=== PATIENT | female | born 1965 | race Caucasian/White ===

== ENCOUNTER 2021-07-14 10:42 | Outpatient (CLI) | payer OTHER, SELFPAY ==
--- NOTE | ~2021-07-14 | XR_ITS ---
XR knee LT 3V DATE: 07/14/2021 11:08 INDICATION: Left knee pain. Stiffness after sitting. TECHNIQUE: 3 views COMPARISON: 06/29/2015 left knee FINDINGS: Diffuse osteopenia. Femoral lateral plate and multiple transverse screws are noted, providing internal fixation for prior comminuted intra-articular fracture of the distal femur. The fracture is healed. No recent fracture or dislocation, periosteal reaction or bone destruction. Normal alignment at the k nee joint. Femoral and popliteal artery calcifications. IMPRESSION: Status post ORIF comminuted distal femoral intra-articular fracture Osteopenia Reviewed, dictated and finalized at location B.
== END 2021-07-14 10:43 | disposition home or self-care (01) ==
LOC: ANHIMG 10:46
PROVIDERS: PCP Internal Medicine; Visit Provider Internal Medicine
DX: M85.862 Other specified disorders of bone density and structure, left lower leg (principal)
CPT/HCPCS: 73562

== ENCOUNTER 2021-07-25 13:12 | Outpatient (CLI) | payer OTHER, SELFPAY ==
--- NOTE | ~2021-07-25 | US_ITS ---
EXAMINATION: US carotid duplex BI DATE: 07/25/2021 14:06 INDICATION: Other specified symptoms/synovitis circulatory/respiratory system TECHNIQUE: Grayscale, color Doppler, and pulsed Doppler images of the cervical carotid arteries were obtained. The degree of vessel stenosis is placed in one of the following categories: normal, <50%, 5 0-69%, >=70% but less than near-occlusion, near-occlusion, or total occlusion. Note that percent sten osis relative to normal distal artery lumen diameter is indirectly measured from velocity measurement s as described by Jordan, et al. Radiology 2003; 229:340-346. COMPARISON: None. FINDINGS: RIGHT: The right common carotid artery (CCA) peak systolic velocity (PSV) is 103 cm/s. The right internal ca rotid artery (ICA) PSV is 130 cm/s. The right ICA end-diastolic velocity (EDV) is 38 cm/s. The right ICA/CCA PSV ratio is 1.3. Grayscale and color Doppler images yield an estimate of 50-69% diameter red uction from plaque in the ICA. The external carotid artery (ECA) PSV is 149 cm/s. There is antegrade flow in the right vertebral artery. LEFT: The left CCA PSV is 83 cm/s. The left ICA PSV is 172 cm/s. The left ICA EDV is 32 cm/s. The left ICA/ CCA PSV ratio is 2.1. Grayscale and color Doppler images yield an estimate of 50-69% diameter reducti on from plaque in the ICA. The ECA PSV is 170 cm/s. There is antegrade flow in the left vertebral art russ. IMPRESSION: 1. 50-69% stenosis in the right internal carotid artery. 2. 50-69% stenosis in the left internal carotid artery. Reviewed, dictated and finalized at location A.
== END 2021-07-25 13:13 | disposition home or self-care (01) ==
LOC: ANHIMG 13:16
PROVIDERS: PCP Internal Medicine; Visit Provider Internal Medicine
DX: R09.89 Other specified symptoms and signs involving the circulatory and respiratory systems (principal); I65.23 Occlusion and stenosis of bilateral carotid arteries
CPT/HCPCS: 93880

== ENCOUNTER 2021-09-26 14:34 | Outpatient (CLI) | payer OTHER, SELFPAY ==
--- NOTE | ~2021-09-26 | DEXA_ITS ---
Bone Density Report Name: LEORA GARZA Age: 56 Sex: Female Ethnicity: White Date of : 1965 Indication: osteopenia; parental hip fracture; prior fracture; Referring Provider: Tarah Jimenez Study: Bone densitometry was performed. Exam Date: September 26, 2021 Accession number: [id number] Bone Density: Region BMD T-score Z-score Classification AP Spine (L1-L4) 1.169 1.1 2.4 Normal Femoral Neck (Left) 0.455 -3.6 -2.4 Osteoporosis Total Hip (Left) 0.629 -2.6 -1.8 Osteoporosis Total Hip Bilateral Avg 0.699 -2.0 -1.2 Osteopenia Femoral Neck (Right) 0.644 -1.8 -0.7 Osteopenia Total Hip (Right) 0.767 -1.4 -0.6 Osteopenia World Health Organization criteria for BMD impression classify patients as: Normal (T-score at or above -1.0), Osteopenia (T-score between -1.0 and -2.5), or Osteoporosis (T-score at or below -2.5). 10-year Fracture Risk: FRAX not reported because: Some T-score for Spine Total or Hip Total or Femoral Neck at or below -2.5 Previous Exams: Region Exam Age BMD T-score BMD Change BMD Change Date g/cm2 vs Baseline vs Previous AP Spine(L1-L4) 09/26/2021 56 1.169 1.1 0.088(8.2%)* 0.088(8.2%)* 08/13/2015 50 1.081 0.3 Total Hip(Left) 09/26/2021 56 0.629 -2.6 -0.159(-20.2%) -0.159(-20.2%) 08/13/2015 50 0.787 -1.3 Total Hip(Right) 09/26/2021 56 0.767 -1.4 -0.004(-0.5%) -0.004(-0.5%) 08/13/2015 50 0.770 -1.4 *Denotes significance at 95% confidence level, LSC for AP Spine = 0.022 g/cm2, LSC for Total Hip = 0.027 g/cm2 Clinical Information Provided by Patient: Has had a low trauma fracture Parent has had a hip fracture Has used the following medications: Vitamin D, Calcium Patient maximum height was 67 Menopause Age: 48 No regular weight bearing exercise Onset of menses at age 14 Number of children 2 Impression: The patient has established osteoporosis, based on the Left Femoral Neck T-score and the existence of a prior fracture. The patient has risk factors, including: parental hip fracture, previous fracture. The BMD for the Total Hip(Left) decreased, changing by -20.2% since the last DXA exam. Discussion: HIGH RISK OF FRACTURE. BONE DENSITY IS UNDESIRABLY LOW AT ONE OR MORE SKELETAL SITES, CONSISTENT WITH POSTMENOPAUSAL OSTEOPOROSIS. This patient's lowest T-score, in a patient who has previously fractured, meets the World Health Organization's (WHO) criteria for severe osteoporosis. In untreated patients, the risk of
== END 2021-09-26 14:35 | disposition home or self-care (01) ==
LOC: ANHIMG 14:35
PROVIDERS: PCP Internal Medicine; Visit Provider Student in an Organized Health Care Education/Training Program
DX: Z78.0 Asymptomatic menopausal state (principal); M81.0 Age-related osteoporosis without current pathological fracture; M85.851 Other specified disorders of bone density and structure, right thigh
CPT/HCPCS: 77080

== ENCOUNTER 2025-07-18 15:45 | Outpatient (CLI) | payer OTHER, SELFPAY ==
--- NOTE | ~2025-07-18 | US_ITS ---
EXAMINATION: US carotid duplex BI DATE: 07/18/2025 16:19 INDICATION: Retinopathy TECHNIQUE: Grayscale, color Doppler, and pulsed Doppler images of the cervical carotid arteries were obtained. The degree of vessel stenosis is placed in one of the following categories: normal, <50%, 50-69%, >=70% but less than near- occlusion, near-occlusion, or total occlusion. Note that percent stenosis relative to normal distal artery lumen diameter is indirectly measured from velocity measurements as described by Jordan, et al. Radiology 2003; 229:340-346. Notes: Normal: Peak systolic velocity <125 centimeters/sec and no plaque <50%. Peak systolic velocity <125 (EDV <40; ICA/CCA PSV ratio <2.0; used these factors only a tandem lesions or low cardiac output or contralateral disease) 50-69 %: PSV 125-230 (EDV 40-100; ratio 2-4) >= 70% but less than near occlusion: PSV greater than 230 (EDV > 100; ratio> 4.0) Near Occlusion: PSV that is variable; markedly narrowed lumen Occlusion: Absent flow on color/spectral Doppler and no lumen on gibson scale. COMPARISON: None. FINDINGS: RIGHT: The right common carotid artery (CCA) peak systolic velocity (PSV) is 95 cm/s. The right internal carotid artery (ICA) PSV is 89 cm/s. The right ICA end- diastolic velocity (EDV) is 26 cm/s. The right ICA/CCA PSV ratio is 0.9. The external carotid artery (ECA) PSV is 93 cm/s. There is antegrade flow in the right vertebral artery. LEFT: The left CCA PSV is 73 cm/s. The left ICA PSV is 97 cm/s. The left ICA EDV is 20 cm/s. The left ICA/CCA PSV ratio is 1.3. The ECA PSV is 107 cm/s. There is flow in the left vertebral artery. IMPRESSION: 1. Less than 50% stenosis in the right internal carotid artery by sonographic criteria. 2. Less than 50% stenosis in the left internal carotid artery by sonographic criteria. Reviewed, dictated and finalized at location B. IMPRESSION: 1. Less than 50% stenosis in the right internal carotid artery by sonographic nikko montano. 2. Less than 50% stenosis in the left internal carotid artery by sonographic fior tinajero.
== END 2025-07-18 15:46 | disposition home or self-care (01) ==
LOC: MICIMG 15:45
PROVIDERS: PCP Physician Assistant Medical; Visit Provider Physician Assistant Medical
DX: H35.00 Unspecified background retinopathy (principal); I65.23 Occlusion and stenosis of bilateral carotid arteries
CPT/HCPCS: 93880